=== PATIENT | female | born 1970 | race Hispanic/Latino ===

== ENCOUNTER 2016-06-23 13:28 | Emergency (ER) | payer MEDICAID ==
[2016-06-23 13:29] VITALS: BMI 31.0
[2016-06-23 13:34] VITALS: BP 125/68; PULSE 112; RESP 20; TEMP 97; O2SAT 96
--- NOTE | 2016-06-23 13:49 | ED PDOC ---
Upper Extremity Pain/Injury Time Seen by Provider: 06/23/16 13:36 Chief Complaint (Nursing): Upper Extremity Problem/Injury Chief Complaint (Provider): left shoulder pain History Per: Patient History/Exam Limitations: no limitations Onset/Duration Of Symptoms: Days (x 2 months) Current Symptoms Are (Timing): Still Present Additional Complaint(s): Julianna Smith is a 46 year old female, with a previous medical history of diabetes, who presents to the ED with complaints of left shoulder pain ongoing for the past 2 months. Pt reports no trauma to the shoulder. Pt reports pain radiates from her neck. Pt states to experiencing tingling but no numbness. Pt denies any additional complaints. Pt reports to seeing her PMD who preformed an x-ray and suggested an MRI. Pt reports PMD is on vacation which is why she has not done an MRI yet. Pt reports tylenol, ibuprofen and aleve cause her to feel nauseous. Pt states to seeing her chiropractor 2 days ago who preformed an adjustment which provided no relief. 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 PMD: Priscila Nassar MD Past Medical History Reviewed: Historical Data, Nursing Documentation, Vital Signs Vital Signs: Last Vital Signs Temp 97 F L 06/23/16 13:31 Pulse 112 H 06/23/16 13:31 Resp 20 06/23/16 13:31 BP 125/68 06/23/16 13:31 Pulse Ox 96 06/23/16 13:31 - Medical History PMH: Diabetes - Surgical History Surgical History: Cholecystectomy - Family History Family History: States: Unknown Family Hx - Home Medications Home Medications: Ambulatory Orders Medication Instructions Recorded Cyclobenzaprine [Cyclobenzaprine 10 mg PO BID #14 tab 06/23/16 HCl] Ibuprofen [Motrin] 400 mg PO Q6 #30 tab 06/23/16 - Allergies Allergies/Adverse Reactions: Allergies Allergy/AdvReac Type Severity Reaction Status Date / Time Penicillins Allergy RASH Verified 06/23/16 13:31 Review of Systems ROS Statement: Except As Marked, All Systems Reviewed And Found Negative Musculoskeletal: Positive for: Shoulder Pain (left shoulder radiating from the neck ) Neurological: Positive for: Other (tingling ). Negative for: Numbness Physical Exam - Reviewed Nursing Documentation Reviewed: Yes Vital Signs Reviewed: Yes - Physical Exam Appears: Positive for: Well, Non-toxic, No Acute Distress Back: Positive for: Vertebral Tenderness (C-7) Extremity: Positive for: Capillary Refill (< 2 seconds ), Other (axillary nerve sensation intact ). Negative for: Normal ROM (abduct no more than 90 degrees. normal flexion and extension of the shoulder), Tenderness (no AC joint Tenderness ), Deformity Neurologic/Psych: Positive for: Alert, Oriented - ECG O2 Sat by Pulse Oximetry: 96 (RA) Pulse Ox Interpretation: Normal Medical Decision Making Medical Decision Making: Initial Impression: shoulder injury Initial Plan: * urine * toradol * reevaluation Pt advised to follow up with an orthopedist for an MRI which will provide a definitive diagnosis and treatment. Scribe Attestation: Documented by Lucy Rodriguez, acting as a scribe for Jailene Whitehead PA-C. Provider Scribe Attestation: All medical record entries made by the Scribe were at my direction and personally dictated by me. I have reviewed the chart and agree that the record accurately reflects my personal performance of the history, physical exam, medical decision making, and the department course for this patient. I have also personally directed, reviewed, and agree with the discharge instructions and disposition. Disposition - Clinical Impression Clinical Impression: Shoulder injury - Disposition Referrals: [facility] [Outside] [facility] [place] [Outside] Chin Ko MD [Staff Provider] - Disposition Time: 14:30 Condition: STABLE Prescriptions: Cyclobenzaprine [Cyclobenzaprine HCl] 10 mg PO BID #14 tab Ibuprofen [Motrin] 400 mg PO Q6 #30 tab Instructions: Rotator Cuff Injury (ED), Shoulder Bursitis (ED), Shoulder Pain ( ED)
== END 2016-06-23 14:25 | disposition home or self-care (01) ==
LOC: H.ER 13:28
DX: M25.512 Pain in left shoulder (principal)

== ENCOUNTER 2017-04-17 19:43 | Emergency (ER) | payer MEDICAID ==
[2017-04-17 19:43] VITALS: BMI 31.0
[2017-04-17 21:35] VITALS: BP 172/91; RESP 16; TEMP 97.7; O2SAT 99
[2017-04-17] MEDS ORDERED: Oxycodone/Acetaminophen 5/325 mg Tab PO STA (21:58)
--- NOTE | 2017-04-17 22:14 | ED PDOC ---
HPI: General Adult Time Seen by Provider: 04/17/17 21:38 Chief Complaint (Nursing): Upper Extremity Problem/Injury History Per: Patient Additional Complaint(s): Pt. states on 03/02/17 she had surgery on her L shoulder done by Dr. Morton due to a fracture and dislocation. Pt. has had continued pain to the shoulder since then. Denies new trauma, fever, numbness, tingling, chest pain, SOB. Past Medical History Reviewed: Historical Data, Nursing Documentation, Vital Signs Vital Signs: Last Vital Signs Temp 97.7 F 04/17/17 21:34 Pulse 101 H 04/17/17 21:34 Resp 16 04/17/17 21:34 BP 172/91 H 04/17/17 21:34 Pulse Ox 99 04/17/17 22:14 - Medical History PMH: Diabetes (Type 2) Denies: Chronic Kidney Disease - Surgical History Surgical History: Cholecystectomy - Family History Family History: States: Unknown Family Hx - Home Medications Home Medications: Ambulatory Orders Medication Instructions Recorded Unknown Diabetes Medication 03/02/17 Blood Sugar Diagnostic, Drum 1 each MC TID #50 strip 03/05/17 [Accu-Chek Compact] Calcium Carbonate/Vitamin D 1 tab PO DAILY #20 tab 03/05/17 [Oscal-D 250 mg-125 Units Tab] Gabapentin [Neurontin] 600 mg PO TID #60 tab 03/05/17 Insulin Pump/Infus. Set/Meter 1 each MC TID #1 kit 03/05/17 [Accu-Chek Combo System] Lancing Device/Lancets [Accu-Chek 1 each MC TID #100 kit 03/05/17 Fastclix Lancet Kit] Lisinopril [Zestril] 2.5 mg PO DAILY #30 tab 03/05/17 Rosuvastatin Calcium 2.5 [Crestor] 2.5 mg PO HS #30 tab 03/05/17 oxyCODONE [oxyCODONE Immediate 5 mg PO Q4H PRN #30 tab 03/05/17 Release Tab] oxyCODONE/Acetaminophen [Percocet 1 ea PO Q8 PRN #8 tab 04/17/17 5/325 mg Tab] - Allergies Allergies/Adverse Reactions: Allergies Allergy/AdvReac Type Severity Reaction Status Date / Time Penicillins Allergy RASH Verified 03/02/17 03:13 Review of Systems ROS Statement: Except As Marked, All Systems Reviewed And Found Negative Musculoskeletal: Positive for: Shoulder Pain Physical Exam - Physical Exam Appears: Positive for: Well, Non-toxic, No Acute Distress Skin: Positive for: Normal Color, Warm. Negative for: Rash Pulses-Radial (L): 2+ Extremity: Positive for: Normal ROM, Other (long surgically healed scar on L upper arm without erythema, swelling, dehisence, or discharge; L lateral shoulder tenderness without deformity) Neurologic/Psych: Positive for: Alert, Oriented - ECG ECG: Positive for: Interpreted By Me ECG Rhythm: Positive for: Sinus Rhythm. Negative for: ST/T Changes Rate: 92 O2 Sat by Pulse Oximetry: 99 - Progress ED Course And Treament: Percocet 2 tabs PO ordered. L shoulder x-ray, EKG ordered. Disposition - Clinical Impression Clinical Impression: Shoulder pain - Patient ED Disposition Is Patient to be Admitted: No - Disposition Referrals: Trell Morton MD [Medical Doctor] - Disposition: Routine/Home Disposition Time: 23:17 Condition: STABLE Additional Instructions: Follow up with your pain management doctor for further evaluation. Prescriptions: oxyCODONE/Acetaminophen [Percocet 5/325 mg Tab] 1 ea PO Q8 PRN #8 tab PRN Reason: Pain Instructions: Shoulder Pain (ED) Forms: [employer] (Swedish)
[2017-04-17] MEDS ORDERED: Oxycodone/Acetaminophen 5/325 mg Tab ONE (22:21)
[2017-04-17] MEDS ORDERED: Lidocaine 5% Patch TD STA (23:09)
[2017-04-17] MEDS ORDERED: Lidocaine 5% Patch TD ONE (23:13)
[2017-04-17 23:19] VITALS: PULSE 92
--- NOTE | 2017-04-18 11:08 | RAD ---
PROCEDURE: Radiographs of the Left Shoulder HISTORY: pain COMPARISON: No prior. FINDINGS: BONES: Postoperative ORIF changes right humeral head and neck accomplished with in situ laterally located sideplate and multiple threaded screws. . There are productive changes arising from the greater tuberosity with what appears represent a discrete soft tissue calcification located inferior to the left acromion. JOINTS: As above. SOFT TISSUES: As above OTHER FINDINGS: None. IMPRESSION: Postoperative ORIF changes right humeral head and neck accomplished with in situ laterally located sideplate and multiple threaded screws. . There are productive changes arising from the greater tuberosity with what appears represent a discrete soft tissue calcification located inferior to the left acromion.
--- NOTE | 2017-04-18 11:17 | CARD ---
APPROVED REPORT EKG Measurement Heart [id number] <Conclusion> Normal sinus rhythm Normal ECG
== END 2017-04-17 23:39 | disposition home or self-care (01) ==
LOC: H.ER 19:43
DX: M25.512 Pain in left shoulder (principal); Z98.890 Other specified postprocedural states; E11.9 Type 2 diabetes mellitus without complications; Z88.0 Allergy status to penicillin

== ENCOUNTER 2018-03-19 22:51 | Inpatient (IN) | payer MEDICAID ==
[2018-03-19 22:51] VITALS: BMI 31.0
[2018-03-20] MEDS ORDERED: Sodium Chloride 0.9% 1,000 ML IV STA (02:38)
--- NOTE | 2018-03-20 02:55 | ED PDOC ---
HPI: Abdomen Time Seen by Provider: 03/20/18 02:11 Chief Complaint (Nursing): Abdominal Pain Chief Complaint (Provider): Abdominal Pain History Per: Patient History/Exam Limitations: no limitations Onset/Duration Of Symptoms: Days (x4) Current Symptoms Are (Timing): Still Present Additional Complaint(s): 48 year old female with pmHx of DM and HTN, presents to ED with complaints of abdominal pain associated with nonbloody diarrhea and nonbloody, nonbilious vomiting since 03/15/18. She also states that she not been able to tolerate food or liquids with sensation of generalized weakness. PCP: Dr. Tracie Francois Past Medical History Reviewed: Historical Data, Nursing Documentation, Vital Signs Vital Signs: Last Vital Signs Temp 98 F 03/19/18 23:55 Pulse 95 H 03/19/18 23:55 Resp 18 03/19/18 23:55 BP 135/81 03/19/18 23:55 Pulse Ox 99 03/19/18 23:55 - Medical History PMH: Diabetes (Type 2), HTN Denies: Chronic Kidney Disease - Surgical History Surgical History: Cholecystectomy - Family History Family History: States: Unknown Family Hx - Social History Current smoker - smoking cessation education provided: Yes (5/daily) - Home Medications Home Medications: Ambulatory Orders Medication Instructions Recorded Aspirin [Ecotrin] 81 mg PO DAILY 03/20/18 Empagliflozin [Jardiance] 25 mg PO DAILY 03/20/18 Escitalopram Oxalate [Lexapro] 5 mg PO DAILY 03/20/18 Gabapentin [Neurontin] 600 mg PO TID 03/20/18 Ibuprofen [Motrin] 400 mg PO TID 03/20/18 Losartan [Cozaar] 25 mg PO DAILY 03/20/18 RX: Ergocalciferol [Drisdol 50,000 1.25 mg PO QWK 03/20/18 Intl Units Cap] Rosuvastatin Calcium [Crestor] 5 mg PO DAILY 03/20/18 - Allergies Allergies/Adverse Reactions: Allergies Allergy/AdvReac Type Severity Reaction Status Date / Time Penicillins Allergy RASH Verified 03/02/17 03:13 Review of Systems ROS Statement: Except As Marked, All Systems Reviewed And Found Negative Constitutional: Positive for: Weakness (generalized) Gastrointestinal: Positive for: Vomiting (NBNB), Abdominal Pain, Diarrhea (NB). Negative for: Other (PO tolerance) Physical Exam - Reviewed Nursing Documentation Reviewed: Yes Vital Signs Reviewed: Yes - Physical Exam Appears: Positive for: Non-toxic, Uncomfortable Head Exam: Positive for: ATRAUMATIC, NORMAL INSPECTION, NORMOCEPHALIC Skin: Positive for: Normal Color Eye Exam: Positive for: Normal appearance ENT: Positive for: Normal ENT Inspection Neck: Positive for: Normal Cardiovascular/Chest: Positive for: Regular Rate, Rhythm Respiratory: Positive for: Normal Breath Sounds Gastrointestinal/Abdominal: Positive for: Soft, Tenderness (diffuse). Negative for: Guarding, Rebound Back: Positive for: Normal Inspection. Negative for: L CVA Tenderness, R CVA T enderness Extremity: Positive for: Normal ROM (upper/lower) Neurologic/Psych: Positive for: Alert, Oriented. Negative for: Motor/Sensory Deficits - Laboratory Results Result Diagrams: 03/20/18 02:58 03/20/18 02:58 - ECG O2 Sat by Pulse Oximetry: 99 (RA) Pulse Ox Interpretation: Normal Medical Decision Making Medical Decision Making: Initial Impression: 48 year old female with acute clinical gastritis Initial Plan: * CT ABD/pelvis * Labs * Bentyl 20mg PO * IV fluids * Zofran 4mg IV * Accucheck Time: 0548 --CT ABD/pelvis Findings: Acute cecal diverticulitis without perforation or abscess formation. Mild constipation. Minimal basilar atelectatic pulmonary changes. The liver is of decreased attenuation without mass or defect. Probably hepatic steatosis. There is no intra or extrahepatic biliary ductal dilatation. The spleen is normal. The gallbladder is surgically absent. The pancreas is of normal contour and attenuation characteristics. There is no evidence of adrenal mass. Both kidneys demonstrate prompt and equal nephrograms. The kidneys are normal in size, shape and configuration. There is no evidence of renal or ureteral mass. No renal or ureteral calculi are identified. There is no hydroureter or hydronephrosis. No evidence for appendicitis. No evidence for small or large bowel obstruction. There is no evidence of abdomi nal ascites or lymphadenopathy. There is no evidence of intrinsic or extrinsic bladder mass. There is no pelvic ascites or lymphadenopathy. Images of the lung bases show no evidence of pleural or parenchymal mass. There are no pleural effusions. The bony structures are free of lytic or blastic lesio ns. IMPRESSION: Acute uncomplicated cecal diverticulitis. No perforation or abscess formation. Additional chronic findings as above. Time: 557 --IV antibiotics and blood culture additionally ordered. Patient to be admitted to hospital for acute diverticulitis. Case referred to Dr. Contreras, [facility] [employer] executive. Counseling was provided and all questions were answered regarding diagnosis. There is agreement to discharge plan. Return if symptoms persist or worsen. ------- Scribe Attestation: Documented by Rowena Gaston, acting as a scribe for Ricardo Thibodeaux MD. Provider Scribe Attestation: All medical record entries made by the Scribe were at my direction and personall y dictated by me. I have reviewed the chart and agree that the record accurately reflects my personal performance of the history, physical exam, medical decision making, and the department course for this patient. I have also personally directed, reviewed, and agree with the discharge instructions and disposition. Disposition - Clinical Impression Clinical Impression: Diverticulitis - Patient ED Disposition Is Patient to be Admitted: Yes Counseled Patient/Family Regarding: Studies Performed, Diagnosis - Disposition Disposition Time: 06:00 Condition: FAIR - Pt Status Changed To: Hospital Disposition Of: Inpatient - Admit Certification Admit to Inpatient:: After my assessment, the patient will require hospitalization for at least two midnights. This is because of the severity of symptoms shown, intensity of services needed, and/or the medical risk in this patient being treated as an outpatient. - POA Present On Arrival: Poor Glycemic Control
[2018-03-20 03:51] LABS: SQUAMOUS EPITHIAL 5 /hpf (0-5); URINE BILIRUBIN NEGATIVE (NEGATIVE); URINE BLOOD SMALL (NEGATIVE); URINE CLARITY SLIGHTY-CLOUDY (Clear); URINE COLOR YELLOW (YELLOW); URINE GLUCOSE (UA) >=500 mg/dL (NEGATIVE); URINE LEUKOCYTE ESTERASE NEG Leu/uL (Negative); URINE PROTEIN NEGATIVE (NEGATIVE)
[2018-03-20 03:56] LABS: BASO % 0.2 % (0.0-2.0); EOS # 0.1 K/uL (0.0-0.7); HEMOGLOBIN 15.6 g/dL (12.0-16.0); LYMPH # 1.8 K/uL (1.0-4.3); LYMPH % 14.8 % (20.0-40.0); MEAN CELL VOLUME 92.9 fl (81.0-99.0); MEAN CORPUSCULAR HEMOGLOBIN 30.8 pg (27.0-31.0); MEAN CORPUSCULAR HGB CONC 33.2 g/dL (33.0-37.0); MEAN PLATELET VOLUME 9.3 fl (7.2-11.7); MONO # 1.1 K/uL (0.0-0.8); MONO % 8.7 % (0.0-10.0); NEUT # 9.4 K/uL (1.8-7.0); NEUT % 75.3 % (50.0-75.0); NRBC % 0.1 % (0.0-0.0); RBC 5.07 Mil/uL (3.80-5.20); RED CELL DISTRIBUTION WIDTH 13.3 % (11.5-14.5); WHITE BLOOD COUNT 12.5 K/uL (4.8-10.8)
[2018-03-20 03:58] LABS: ALB/GLOB RATIO 1.3 (1.0-2.1); ALBUMIN 4.1 g/dL (3.5-5.0); BLOOD UREA NITROGEN 9 mg/dl (7-17); GFR NON-AFRICAN AMERICAN > 60; LIPASE 25 U/L (23-300)
[2018-03-20 04:21] LABS: ALT/SGPT 83 U/L (9-52); AST/SGOT 53 U/L (14-36)
[2018-03-20] MEDS ORDERED: Sodium Chloride 0.9% 50 ML IV ONE (04:55)
[2018-03-20] MEDS ORDERED: Iohexol 300 100 ML IJ ONE (04:55)
[2018-03-20] MEDS ORDERED: Ciprofloxacin 400mg/200ml D5W 400 MG/200 ML BAG IV STA (05:57)
[2018-03-20] MEDS ORDERED: metroNIDAZOLE 500mg/100ml NS 100 ML IVPB STA (05:57)
[2018-03-20] MEDS ORDERED: Ciprofloxacin 400mg/200ml D5W 400 MG/200 ML BAG IVPB ONE (06:28)
[2018-03-20] MEDS ORDERED: metroNIDAZOLE 500mg/100ml NS 100 ML IVPB ONE (07:42)
[2018-03-20] MEDS ORDERED: Sodium Chloride 0.9% 1,000 ML IV SCH (08:15)
--- NOTE | 2018-03-20 09:01 | CT ---
Date of service: 03/20/2018 PROCEDURE: CT Abdomen and Pelvis with contrast HISTORY: abd pain COMPARISON: None. TECHNIQUE: Following the intravenous administration of iodinated contrast material, a CT examination of the abdomen and pelvis performed from the domes of the diaphragms to the symphysis pubis with reformatted datasets provided in axial, sagittal and coronal planes. Oral contrast was not administered as per referring physician request. Coronal and sagittal reformats were generated. Contrast dose: Omnipaque 300, 95 cc Radiation dose: Total exam DLP = 771.02 mGy-cm. This CT exam was performed using one or more of the following dose reduction techniques: Automated exposure control, adjustment of the mA and/or kV according to patient size, and/or use of iterative reconstruction technique. FINDINGS: LOWER THORAX: A small hiatal hernia is encountered. LIVER: Hepatic steatosis without intrahepatic biliary dilatation or discrete mass appreciated. GALLBLADDER AND BILE DUCTS: Prior cholecystectomy. PANCREAS: Unremarkable. No gross lesion or ductal dilatation. SPLEEN: Unremarkable. ADRENALS: Unremarkable. No mass. KIDNEYS AND URETERS: Unremarkable. No hydronephrosis. No solid mass. VASCULATURE: Unremarkable. No aortic aneurysm. No aortic atherosclerotic calcification or mural plaque present. BOWEL: Scattered diverticular are identified throughout the colon with pericecal reactive changes seen including adjacent to multiple diverticula suspicious for cecal diverticulitis. The appendix not identified and appendicitis not completely excluded but is not favored either. Clinically correlate further. Moderate retained fecal material scattered throughout the bowel. No bowel obstruction appreciable. Imaging through the stomach reflects distention by retained food. PERITONEUM: Unremarkable. No free fluid. No free air. LYMPH NODES: Unremarkable. No enlarged lymph nodes. BLADDER: Unremarkable. REPRODUCTIVE: Unremarkable. BONES: No acute fracture. OTHER FINDINGS: None. IMPRESSION: Findings likely compatible with cecal diverticulitis. The appendix is not identified. Appendicitis not clearly evident or completely excluded either. Clinically correlate further. Scattered colonic diverticulosis. Hepatic steatosis. Prior cholecystectomy. Concordant preliminary report from [facility], 03/20/2018 5:48 a.m..
[2018-03-20] MEDS ORDERED: Pneumococcal 23-Valent Vaccine IM ONE (10:23)
[2018-03-20] MEDS: Potassium Chl 20 mEq in NS 1,000 ML IV SCH ×2 (13:24→17:39)
--- NOTE | 2018-03-20 14:49 | CP.PCM.CON ---
History of Present Illness - History of Present Illness History of Present Illness: Patient with severe abdominal pain over past few days . Associated with nausea and vomiting and food intolerance.On right side and became unbearable. Ct c/w right sided diverticulitis Review of Systems - Constitutional Constitutional: absent: Chills - EENT Eyes: absent: Blurred Vision Nose/Mouth/Throat: absent: Nasal Congestion - Cardiovascular Cardiovascular: absent: Chest Pain - Respiratory Respiratory: absent: Dyspnea - Gastrointestinal Gastrointestinal: As Per HPI, Abdominal Pain Past Patient History - Past Medical History & Family History Past Medical History?: Yes - Past Social History Smoking Status: Heavy Smoker > 10 Cigarettes Daily - CARDIAC Hx Cardiac Disorders: Yes Hx Hypertension: Yes - PULMONARY Hx Respiratory Disorders: No - NEUROLOGICAL Hx Neurological Disorder: No - HEENT Hx HEENT Problems: No - RENAL Hx Chronic Kidney Disease: No - ENDOCRINE/METABOLIC Hx Endocrine Disorders: Yes Hx Diabetes Mellitus Type 2: Yes - HEMATOLOGICAL/ONCOLOGICAL Hx Blood Disorders: No - INTEGUMENTARY Hx Dermatological Problems: No - MUSCULOSKELETAL/RHEUMATOLOGICAL Hx Musculoskeletal Disorders: No Hx Falls: No - GASTROINTESTINAL Hx Gastrointestinal Disorders: No - GENITOURINARY/GYNECOLOGICAL Hx Genitourinary Disorders: No - PSYCHIATRIC Hx Psychophysiologic Disorder: No Hx Substance Use: No - SURGICAL HISTORY Hx Cholecystectomy: Yes Other/Comment: left arm injury with surgery; plate and 7 screws - ANESTHESIA Hx Anesthesia: Yes Hx Anesthesia Reactions: No Meds Allergies/Adverse Reactions: Allergies Allergy/AdvReac Type Severity Reaction Status Date / Time Penicillins Allergy RASH Verified 03/02/17 03:13 - Medications Medications: Current Medications Atorvastatin Calcium (Lipitor) 10 mg PO DAILY [facility] Last Admin: 03/20/18 13:33 Dose: 10 mg Escitalopram Oxalate (Lexapro) 5 mg PO DAILY [facility] Last Admin: 03/20/18 13:26 Dose: 5 mg Home Med (Empagliflozin [Jardiance]) 25 mg PO DAILY [facility] Last Admin: 03/20/18 13:26 Dose: 25 mg Potassium Chloride/Sodium Chloride (Potassium Chl 20 Meq In Ns) 1,000 mls @ 100 mls/hr IV .Q10H [facility] Stop: 03/21/18 08:11 Last Admin: 03/20/18 13:24 Dose: 100 mls/hr Ciprofloxacin (Cipro 400mg/200ml Dsw) 400 mg in 200 mls @ 200 mls/hr IVPB Q12 ABILIO; Protocol Metronidazole (Flagyl 500mg/100ml Ns) 100 mls @ 100 mls/hr IVPB Q8 ABILIO; Protocol Losartan Potassium (Cozaar) 25 mg PO DAILY [facility] Last Admin: 03/20/18 13:26 Dose: 25 mg Physical Exam - Head Exam Head Exam: ATRAUMATIC - Eye Exam Eye Exam: Normal appearance - ENT Exam ENT Exam: Mucous Membranes Moist - Neck Exam Neck exam: Positive for: Normal Inspection - Respiratory Exam Respiratory Exam: Clear to Auscultation Bilateral - Cardiovascular Exam Cardiovascular Exam: REGULAR RHYTHM - GI/Abdominal Exam GI & Abdominal Exam: Normal Bowel Sounds, Tenderness Results - Vital Signs Recent Vital Signs: Last Vital Signs Temp 98.2 F 03/20/18 09:00 Pulse 65 03/20/18 09:00 Resp 18 03/20/18 09:00 BP 104/71 03/20/18 09:00 Pulse Ox 99 03/20/18 09:00 - Labs Result Diagrams: 03/20/18 02:58 03/20/18 02:58 Labs: Laboratory Results - last 24 hr 03/20/18 03/20/18 03/20/18 02:58 02:58 02:58 WBC 12.5 H RBC 5.07 Hgb 15.6 Hct 47.1 H MCV 92.9 MCH 30.8 MCHC 33.2 RDW 13.3 Plt Count 219 MPV 9.3 Neut % (Auto) 75.3 H Lymph % (Auto) 14.[address] % (Auto) 8.7 Eos % (Auto) 1.0 Baso % (Auto) 0.2 Neut # (Auto) 9.4 H Lymph # (Auto) 1.8 Lane # (Auto) 1.1 H Eos # (Auto) 0.1 Baso # (Auto) 0.0 Sodium 139 Potassium 3.3 L Chloride 101 Carbon Dioxide 27 Anion Gap 14 BUN 9 Creatinine 0.4 L Est GFR ( Amer) > 60 Est GFR (Non-Af Amer) > 60 POC Glucose (mg/dL) Random Glucose 185 H Lactic Acid Calcium 9.0 Total Bilirubin 0.4 AST 53 H D ALT 83 H D Alkaline Phosphatase 72 Total Protein 7.4 Albumin 4.1 Globulin 3.3 Albumin/Globulin Ratio 1.3 Lipase 25 Urine Color Yellow Urine Clarity Slighty-cloudy Urine pH 6.0 Ur Specific [place] 1.037 H Urine Protein Negative Urine Glucose (UA) >=500 Urine Ketones Negative Urine Blood Small Urine Nitrate Negative Urine Bilirubin Negative Urine Urobilinogen 4.0 H Ur Leukocyte Esterase Neg Urine RBC (Auto) 2 Urine Microscopic WBC 2 Ur Squamous Epith Cells 5 03/20/18 03/20/18 07:56 08:10 WBC RBC Hgb Hct MCV MCH MCHC RDW Plt Count MPV Neut % (Auto) Lymph % (Auto) Lane % (Auto) Eos % (Auto) Baso % (Auto) Neut # (Auto) Lymph # (Auto) Lane # (Auto) Eos # (Auto) Baso # (Auto) Sodium Potassium Chloride Carbon Dioxide Anion Gap BUN Creatinine Est GFR ( Amer) Est GFR (Non-Af Amer) POC Glucose (mg/dL) 212 H Random Glucose Lactic Acid 1.1 Calcium Total Bilirubin AST ALT Alkaline Phosphatase Total Protein Albumin Globulin Albumin/Globulin Ratio Lipase Urine Color Urine Clarity Urine pH Ur Specific [place] Urine Protein Urine Glucose (UA) Urine Ketones Urine Blood Urine Nitrate Urine Bilirubin Urine Urobilinogen Ur Leukocyte Esterase Urine RBC (Auto) Urine Microscopic WBC Ur Squamous Epith Cells - Imaging and Cardiology CT scan - abdomen Status: Report reviewed by me Assessment & Plan (1) Diverticulitis large intestine Assessment and Plan: continue IV hydration and broad sbectrum abx. NPO for now. surgical consultation Status: Acute
[2018-03-20] MEDS: Insulin Regular 100 units/ml SC SCH ×2 (17:06→22:00)
[2018-03-20] MEDS: metroNIDAZOLE 500mg/100ml NS 100 ML IVPB SCH (17:37)
[2018-03-20] MEDS: Ciprofloxacin 400mg/200ml D5W 400 MG/200 ML BAG IVPB SCH (21:07)
[2018-03-21] MEDS: metroNIDAZOLE 500mg/100ml NS 100 ML IVPB SCH ×3 (00:11→17:39)
[2018-03-21] MEDS: Potassium Chl 20 mEq in NS 1,000 ML IV SCH ×2 (03:27→22:54)
[2018-03-21 06:44] LABS: HEMOGLOBIN 13.7 g/dL (12.0-16.0); MEAN CELL VOLUME 91.5 fl (81.0-99.0); MEAN CORPUSCULAR HEMOGLOBIN 30.3 pg (27.0-31.0); MEAN CORPUSCULAR HGB CONC 33.2 g/dL (33.0-37.0); RBC 4.5 Mil/uL (3.80-5.20); RED CELL DISTRIBUTION WIDTH 13.3 % (11.5-14.5); WHITE BLOOD COUNT 8.6 K/uL (4.8-10.8)
[2018-03-21 07:04] LABS: BLOOD UREA NITROGEN 7 mg/dl (7-17); CALCIUM 8.4 mg/dL (8.4-10.2); GFR NON-AFRICAN AMERICAN > 60
--- NOTE | 2018-03-21 09:00 | CP.PCM.CON ---
History of Present Illness - History of Present Illness History of Present Illness: 48F w/ PMH of DM, HTN, presented to [facility] ED with complaints of abdominal pain. Patient states symptoms began about 5 days ago. She reports pain is localized along her right lower quadrant. Pain was associated with nausea and non-bloody emesis as well as diarrhea. Patient denies having fever/chills. Denies dysuria. States this is the first time she's ever experienced these kind of symptoms. At time of examination she denied headache/dizziness, fever/chills, chest pain, SOB, dysuria. Reports mild nausea. Never had a colonoscopy. PMH: as stated above PSurgHx: laparoscopic cholecystectomy ~26years ago Allergies: Penicillins (swollen tongue) Fam Hx: No known history of cancers Review of Systems - Review of Systems Review of Systems: 10 pt ROS unremarkable, except as stated in HPI Past Patient History - Past Medical History & Family History Past Medical History?: Yes - Past Social History Smoking Status: Heavy Smoker > 10 Cigarettes Daily - CARDIAC Hx Hypertension: Yes - PULMONARY Hx Respiratory Disorders: No - NEUROLOGICAL Hx Neurological Disorder: No - HEENT Hx HEENT Problems: No - RENAL Hx Chronic Kidney Disease: No - ENDOCRINE/METABOLIC Hx Endocrine Disorders: Yes Hx Diabetes Mellitus Type 2: Yes - HEMATOLOGICAL/ONCOLOGICAL Hx Blood Disorders: No - INTEGUMENTARY Hx Dermatological Problems: No - MUSCULOSKELETAL/RHEUMATOLOGICAL Hx Musculoskeletal Disorders: No Hx Falls: No - GASTROINTESTINAL Hx Gastrointestinal Disorders: No - GENITOURINARY/GYNECOLOGICAL Hx Genitourinary Disorders: No - PSYCHIATRIC Hx Psychophysiologic Disorder: No Hx Substance Use: No - SURGICAL HISTORY Hx Cholecystectomy: Yes - ANESTHESIA Hx Anesthesia: Yes Hx Anesthesia Reactions: No Meds Allergies/Adverse Reactions: Allergies Allergy/AdvReac Type Severity Reaction Status Date / Time Penicillins Allergy RASH Verified 03/02/17 03:13 - Medications Medications: Current Medications Atorvastatin Calcium (Lipitor) 10 mg PO DAILY [facility] Last Admin: 03/20/18 13:33 Dose: 10 mg Escitalopram Oxalate (Lexapro) 5 mg PO DAILY [facility] Last Admin: 03/20/18 13:26 Dose: 5 mg Home Med (Empagliflozin [Jardiance]) 25 mg PO DAILY [facility] Last Admin: 03/20/18 13:26 Dose: 25 mg Ciprofloxacin (Cipro 400mg/200ml Dsw) 400 mg in 200 mls @ 200 mls/hr IVPB Q12 [facility]; Protocol Last Admin: 03/20/18 21:07 Dose: 200 mls/hr Metronidazole (Flagyl 500mg/100ml Ns) 100 mls @ 100 mls/hr IVPB Q8 [facility]; Protocol Last Admin: 03/21/18 00:11 Dose: 100 mls/hr Ibuprofen (Motrin Tab) 600 mg PO Q6 PRN PRN Reason: Pain, moderate (4-7) Last Admin: 03/20/18 17:40 Dose: 600 mg Insulin Human Regular (Humulin R) 0 units SC ACHS [facility]; Protocol Last Admin: 03/20/18 22:00 Dose: Not Given Losartan Potassium (Cozaar) 25 mg PO DAILY [facility] Last Admin: 03/20/18 13:26 Dose: 25 mg Ondansetron HCl (Zofran Inj) 4 mg IVP Q6 PRN PRN Reason: Nausea/Vomiting Pantoprazole Sodium (Protonix Inj) 40 mg IVP DAILY [facility] Physical Exam - Constitutional Appears: No Acute Distress - Head Exam Head Exam: NORMOCEPHALIC - Eye Exam Eye Exam: EOMI, Normal appearance - ENT Exam ENT Exam: Mucous Membranes Moist - Respiratory Exam Respiratory Exam: NORMAL BREATHING PATTERN - Cardiovascular Exam Cardiovascular Exam: +S1, +S2 - GI/Abdominal Exam GI & Abdominal Exam: Soft, Tenderness. absent: Distended, Firm, Guarding, Rebound, Rigid Additional comments: RLQ tenderness - Neurological Exam Neurological exam: Alert, Oriented x3 - Skin Skin Exam: Dry, Intact, Warm Results - Vital Signs Recent Vital Signs: Last Vital Signs Temp 97.9 F 03/21/18 08:14 Pulse 64 03/21/18 08:14 Resp 20 03/21/18 08:14 BP 104/70 03/21/18 08:14 Pulse Ox 95 03/21/18 08:14 - Labs Result Diagrams: 03/21/18 05:45 03/21/18 05:45 Labs: Laboratory Results - last 24 hr 03/20/18 03/20/18 03/21/18 16:48 21:37 05:45 WBC 8.6 RBC 4.50 Hgb 13.7 Hct 41.2 MCV 91.5 MCH 30.3 MCHC 33.2 RDW 13.3 Plt Count 165 Sodium Potassium Chloride Carbon Dioxide Anion Gap BUN Creatinine Est GFR ( Amer) Est GFR (Non-Af Amer) POC Glucose (mg/dL) 115 H 165 H Random Glucose Calcium 03/21/18 03/21/18 05:45 06:11 WBC RBC Hgb Hct MCV MCH MCHC RDW Plt Count Sodium 141 Potassium 3.1 L Chloride 107 Carbon Dioxide 24 Anion Gap 13 BUN 7 Creatinine 0.4 L Est GFR ( Amer) > 60 Est GFR (Non-Af Amer) > 60 POC Glucose (mg/dL) 103 Random Glucose 96 Calcium 8.4 Assessment & Plan - Assessment and Plan (Free Text) Assessment: 48F with cecal diverticulitis Plan: -Ok for CLD -IVF -ABx -Analgesic prn -Anti-emetics prn -Recommend outpatient colonoscopy -F/u GI recs -No acute surgical intervention at this present time D/w Dr. Benedict Paniagua PGY3
[2018-03-21] MEDS: Insulin Regular 100 units/ml SC SCH ×4 (09:49→23:47)
[2018-03-21] MEDS: Ciprofloxacin 400mg/200ml D5W 400 MG/200 ML BAG IVPB SCH ×2 (09:50→20:49)
--- NOTE | 2018-03-21 09:53 | CP.PCM.HP ---
History of Present Illness - History of Present Illness History of Present Illness: 48 year old female with PMHx of DM and HTN, presented to ED with complaints of abdominal pain associated with nonbloody diarrhea and nonbloody, nonbilious vomiting x 4-[address] abd/pelvis was completed, notable for acute diverticulitis started on IV abx and npo patient seen and examined at bedside abd pain improved though still present ruq pain when touched denies fever/chills Present on Admission - Present on Admission Any Indicators Present on Admission: Yes History of Uncontrolled Diabetes: Yes Review of Systems - Review of Systems All systems: reviewed and no additional remarkable complaints except (mentioned above) Past Patient History - Past Medical History & Family History Past Medical History?: Yes - Past Social History Smoking Status: Heavy Smoker > 10 Cigarettes Daily - CARDIAC Hx Hypertension: Yes - PULMONARY Hx Respiratory Disorders: No - NEUROLOGICAL Hx Neurological Disorder: No - HEENT Hx HEENT Problems: No - RENAL Hx Chronic Kidney Disease: No - ENDOCRINE/METABOLIC Hx Endocrine Disorders: Yes Hx Diabetes Mellitus Type 2: Yes - HEMATOLOGICAL/ONCOLOGICAL Hx Blood Disorders: No - INTEGUMENTARY Hx Dermatological Problems: No - MUSCULOSKELETAL/RHEUMATOLOGICAL Hx Musculoskeletal Disorders: No Hx Falls: No - GASTROINTESTINAL Hx Gastrointestinal Disorders: No - GENITOURINARY/GYNECOLOGICAL Hx Genitourinary Disorders: No - PSYCHIATRIC Hx Psychophysiologic Disorder: No Hx Substance Use: No - SURGICAL HISTORY Hx Cholecystectomy: Yes - ANESTHESIA Hx Anesthesia: Yes Hx Anesthesia Reactions: No Meds Home Medications: Home Medication List Medication Instructions Recorded Confirmed Type Ciprofloxacin HCl [Cipro] 500 mg PO BID 7 Days tablet 03/22/18 Rx Metronidazole [Flagyl] 500 mg PO TID 7 Days tablet 03/22/18 Rx Pantoprazole Sodium [Protonix] 40 mg PO DAILY #30 tablet. 03/22/18 Rx Simethicone [Mylicon Chew Tab] 80 mg PO PCHS #60 chew 03/22/18 Rx Allergies/Adverse Reactions: Allergies Allergy/AdvReac Type Severity Reaction Status Date / Time Penicillins Allergy RASH Verified 03/02/17 03:13 Physical Exam - Constitutional Appears: Non-toxic, No Acute Distress - Head Exam Head Exam: NORMAL INSPECTION - Eye Exam Eye Exam: Normal appearance - Neck Exam Neck exam: Positive for: Normal Inspection - Respiratory Exam Respiratory Exam: NORMAL BREATHING PATTERN - Cardiovascular Exam Cardiovascular Exam: +S1, +S2 - GI/Abdominal Exam GI & Abdominal Exam: Normal Bowel Sounds, Soft, Tenderness (ruq) - Extremities Exam Extremities exam: Positive for: normal inspection - Back Exam Back exam: NORMAL INSPECTION - Neurological Exam Neurological exam: Alert, Oriented x3 - Psychiatric Exam Psychiatric exam: Normal Affect, Normal Mood - Skin Skin Exam: Normal Color, Warm Results - Vital Signs Recent Vital Signs: Last Vital Signs Temp 97.9 F 03/21/18 08:14 Pulse 64 03/21/18 09:50 Resp 20 03/21/18 08:14 BP 104/70 03/21/18 09:50 Pulse Ox 95 03/21/18 08:14 - Labs Result Diagrams: 03/21/18 05:45 03/22/18 06:00 Labs: Laboratory Results - last 24 hr 03/20/18 03/20/18 03/21/18 16:48 21:37 05:45 WBC 8.6 RBC 4.50 Hgb 13.7 Hct 41.2 MCV 91.5 MCH 30.3 MCHC 33.2 RDW 13.3 Plt Count 165 Sodium Potassium Chloride Carbon Dioxide Anion Gap BUN Creatinine Est GFR ( Amer) Est GFR (Non-Af Amer) POC Glucose (mg/dL) 115 H 165 H Random Glucose Calcium 03/21/18 03/21/18 05:45 06:11 WBC RBC Hgb Hct MCV MCH MCHC RDW Plt Count Sodium 141 Potassium 3.1 L Chloride 107 Carbon Dioxide 24 Anion Gap 13 BUN 7 Creatinine 0.4 L Est GFR ( Amer) > 60 Est GFR (Non-Af Amer) > 60 POC Glucose (mg/dL) 103 Random Glucose 96 Calcium 8.4 Assessment & Plan (1) Diverticulitis Status: Acute - Assessment and Plan (Free Text) Plan: monitor vitals monitor labs Cont meds Cont tx consult GI rest of plan as ordered
[2018-03-21] MEDS: Simethicone 80 mg Chewtab PO SCH ×3 (12:57→22:55)
--- NOTE | 2018-03-21 13:06 | US ---
Date of service: 03/21/2018 HISTORY: ruq pain COMPARISON: None. TECHNIQUE: Sonographic evaluation of the abdomen. FINDINGS: LIVER: Measures cm. Increased echogenicity of the liver parenchyma. No mass. No intrahepatic bile duct dilatation. GALLBLADDER: Status post cholecystectomy. COMMON BILE DUCT: Measures mm. No stones. No dilatation. PANCREAS: Unremarkable as visualized. No mass. No ductal dilatation. RIGHT KIDNEY: Measures cm. Normal echogenicity. No calculus, mass, or hydronephrosis. LEFT KIDNEY: Measures cm. Normal echogenicity. No calculus, mass, or hydronephrosis. SPLEEN: 13 centimeters. AORTA: No aneurysmal dilatation. IVC: Unremarkable. OTHER FINDINGS: None. IMPRESSION: Cholecystectomy. Fatty liver.
[2018-03-21 16:40] VITALS: BP 101/65; PULSE 65; O2SAT 98
[2018-03-22] MEDS: metroNIDAZOLE 500mg/100ml NS 100 ML IVPB SCH ×2 (00:55→09:43)
--- NOTE | 2018-03-22 05:56 | CP.PCM.PN ---
Subjective - Date & Time of Evaluation Date of Evaluation: 03/22/18 Time of Evaluation: 05:50 - Subjective Subjective: Patient seen and examined. No acute events over night. Tolerated regular diet. Denies n/v. Denies passing flatus/BM. States abdominal pain has improved. No complaints. Objective - Vital Signs/Intake and Output Vital Signs (last 24 hours): Temp Pulse Resp BP Pulse Ox 98.3 F 65 18 101/65 98 03/21/18 17:00 03/21/18 17:00 03/21/18 17:00 03/21/18 17:00 03/21/18 17:00 - Medications Medications: Current Medications Atorvastatin Calcium (Lipitor) 10 mg PO DAILY [facility] Last Admin: 03/21/18 09:50 Dose: 10 mg Escitalopram Oxalate (Lexapro) 5 mg PO DAILY [facility] Last Admin: 03/21/18 10:52 Dose: Not Given Famotidine (Pepcid) 40 mg PO DAILY [facility] Last Admin: 03/21/18 12:57 Dose: 40 mg Home Med (Empagliflozin [Jardiance]) 25 mg PO DAILY [facility] Last Admin: 03/21/18 09:50 Dose: 25 mg Ciprofloxacin (Cipro 400mg/200ml Dsw) 400 mg in 200 mls @ 200 mls/hr IVPB Q12 [facility]; Protocol Last Admin: 03/21/18 20:49 Dose: 200 mls/hr Metronidazole (Flagyl 500mg/100ml Ns) 100 mls @ 100 mls/hr IVPB Q8 [facility]; Protocol Last Admin: 03/22/18 00:55 Dose: 100 mls/hr Potassium Chloride/Sodium Chloride (Potassium Chl 20 Meq In Ns) 1,000 mls @ 100 mls/hr IV .Q10H [facility] Stop: 03/22/18 22:12 Last Admin: 03/21/18 22:54 Dose: 100 mls/hr Ibuprofen (Motrin Tab) 600 mg PO Q6 PRN PRN Reason: Pain, moderate (4-7) Last Admin: 03/20/18 17:40 Dose: 600 mg Insulin Human Regular (Humulin R) 0 units SC ACHS [facility]; Protocol Last Admin: 03/21/18 23:47 Dose: Not Given Losartan Potassium (Cozaar) 25 mg PO DAILY [facility] Last Admin: 03/21/18 09:50 Dose: 25 mg Ondansetron HCl (Zofran Inj) 4 mg IVP Q6 PRN PRN Reason: Nausea/Vomiting Last Admin: 03/21/18 09:50 Dose: 4 mg Pantoprazole Sodium (Protonix Inj) 40 mg IVP DAILY [facility] Last Admin: 03/21/18 10:53 Dose: 40 mg [facility]ethicone ([facility]licon Chew [facility]) [facility] Admin: 03/21/18 22:55 Dose: 80 mg - Labs Labs: 03/21/18 05:45 03/21/18 05:45 - Constitutional Appears: No Acute Distress - Head Exam Head Exam: NORMOCEPHALIC - Eye Exam Eye Exam: EOMI, Normal appearance - ENT Exam ENT Exam: Mucous Membranes Moist - Respiratory Exam Respiratory Exam: NORMAL BREATHING PATTERN - Cardiovascular Exam Cardiovascular Exam: +S1, +S2 - GI/Abdominal Exam GI & Abdominal Exam: Soft. absent: Firm, Guarding, Tenderness, Rebound - Neurological Exam Neurological Exam: Alert, Awake, Oriented x3 - Psychiatric Exam Psychiatric exam: Normal Mood - Skin Skin Exam: Dry, Intact, Warm Assessment and Plan - Assessment and Plan (Free Text) Assessment: 48F with cecal diverticulitis Plan: Recommend low residue diet C/w ABx Analgesics prn Anti-emetics prn No acute surgical intervention at this time F/u GI recs Encourage ambulation Further recs per Dr. Benedict Paniagua PGY3
[2018-03-22 07:37] LABS: BLOOD UREA NITROGEN 13 mg/dl (7-17); GFR NON-AFRICAN AMERICAN > 60
[2018-03-22] MEDS: Insulin Regular 100 units/ml SC SCH ×2 (09:43→12:27)
[2018-03-22] MEDS: Simethicone 80 mg Chewtab PO SCH (09:45)
[2018-03-22] MEDS: Ciprofloxacin 400mg/200ml D5W 400 MG/200 ML BAG IVPB SCH (10:44)
--- NOTE | 2018-03-22 10:50 | CP.PCM.PN ---
Subjective - Date & Time of Evaluation Date of Evaluation: 03/22/18 Time of Evaluation: 10:34 - Subjective Subjective: Doing well. Denies pain and tolerating diet. Objective - Vital Signs/Intake and Output Vital Signs (last 24 hours): Temp Pulse Resp BP Pulse Ox 98.3 F 65 18 101/65 98 03/21/18 17:00 03/22/18 09:44 03/21/18 17:00 03/22/18 09:44 03/21/18 17:00 - Medications Medications: Current Medications Atorvastatin Calcium (Lipitor) 10 mg PO DAILY [facility] Last Admin: 03/22/18 09:45 Dose: 10 mg Escitalopram Oxalate (Lexapro) 5 mg PO DAILY [facility] Last Admin: 03/22/18 09:37 Dose: Not Given Famotidine (Pepcid) 40 mg PO DAILY [facility] Last Admin: 03/22/18 09:44 Dose: 40 mg Home Med (Empagliflozin [Jardiance]) 25 mg PO DAILY [facility] Last Admin: 03/22/18 09:44 Dose: 25 mg Ciprofloxacin (Cipro 400mg/200ml Dsw) 400 mg in 200 mls @ 200 mls/hr IVPB Q12 [facility]; Protocol Last Admin: 03/21/18 20:49 Dose: 200 mls/hr Metronidazole (Flagyl 500mg/100ml Ns) 100 mls @ 100 mls/hr IVPB Q8 [facility]; Protocol Last Admin: 03/22/18 09:43 Dose: 100 mls/hr Potassium Chloride/Sodium Chloride (Potassium Chl 20 Meq In Ns) 1,000 mls @ 100 mls/hr IV .Q10H [facility] Stop: 03/22/18 22:12 Last Admin: 03/21/18 22:54 Dose: 100 mls/hr Ibuprofen (Motrin Tab) 600 mg PO Q6 PRN PRN Reason: Pain, moderate (4-7) Last Admin: 03/20/18 17:40 Dose: 600 mg Insulin Human Regular (Humulin R) 0 units SC ACHS [facility]; Protocol Last Admin: 03/22/18 09:43 Dose: 1 unit Losartan Potassium (Cozaar) 25 mg PO DAILY [facility] Last Admin: 03/22/18 09:44 Dose: 25 mg Ondansetron HCl (Zofran Inj) 4 mg IVP Q6 PRN PRN Reason: Nausea/Vomiting Last Admin: 03/21/18 09:50 Dose: 4 mg Pantoprazole Sodium (Protonix Inj) 40 mg IVP DAILY [facility] Last Admin: 03/22/18 09:43 Dose: 40 mg Simethicone (Mylicon Chew Tab) 80 mg PO PCHS [facility] Last Admin: 03/22/18 09:45 Dose: 80 mg - Labs Labs: 03/21/18 05:45 03/22/18 06:00 - Head Exam Head Exam: ATRAUMATIC - Eye Exam Eye Exam: Normal appearance - Neck Exam Neck Exam: Full ROM - Respiratory Exam Respiratory Exam: Clear to Ausculation Bilateral - Cardiovascular Exam Cardiovascular Exam: REGULAR RHYTHM - GI/Abdominal Exam GI & Abdominal Exam: Soft. absent: Tenderness Assessment and Plan (1) Diverticulitis large intestine Assessment & Plan: Clinically much better. Complete one week of antibiotics. Colonoscopy after 6 weeks. Status: Acute
[2018-03-22 11:25] VITALS: RESP 20; TEMP 97.9
[2018-03-22] MEDS: Potassium Chl 20 mEq in NS 1,000 ML IV SCH (12:29)
--- NOTE | 2018-03-23 13:49 | CARD ---
APPROVED REPORT Date of service: 03/21/2018 EKG Measurement Heart [id number] IN [id number] <Conclusion> Sinus bradycardia Otherwise normal ECG
--- NOTE | 2018-03-23 22:47 | CP.PCM.PN ---
Subjective - Date & Time of Evaluation Date of Evaluation: 03/21/18 Time of Evaluation: 11:00 - Subjective Subjective: patient seen and examined at bedside. Interim events noted ruq pain on palpation No other complaints offered at this time denies cp/sob/fever/chills. available diagnostic data reviewed Objective Vital Signs Stable - Constitutional Appears: Non-toxic, No Acute Distress - Head Exam Head Exam: NORMAL INSPECTION - Eye Exam Eye Exam: Normal appearance - Respiratory Exam Respiratory Exam: NORMAL BREATHING PATTERN - Cardiovascular Exam Cardiovascular Exam: +S1, +S2 - GI/Abdominal Exam GI & Abdominal Exam: Soft, tenderness ruq - Neurological Exam Neurological Exam: Alert, Awake - Psychiatric Exam Psychiatric exam: Normal Affect, Normal Mood - Skin Skin Exam: Normal Color, Warm Assessment and Plan monitor vitals monitor labs Cont meds Cont tx obtain ruq u/s consultants appreciated input rest of plan as ordered Assessment and Plan (1) Diverticulitis Status: Acute
--- NOTE | 2018-03-23 22:49 | CP.PCM.DIS ---
Provider - Provider Date of Admission: 03/20/18 05:58 Attending physician: Juan Contreras MD Consults: 03/20/18 09:58 Gastroenterology Consult Routine Comment: Consulting Provider: Faisal Flood Consulting Physician: Faisal Flood Reason for Consult: Acute cecal diverticulitis 03/21/18 08:12 General Surgery Consult Routine Comment: cecal diverticulitis Consulting Provider: Shailesh Mcmullen Consulting Physician: Shailesh Mcmullen Reason for Consult: cecal diverticulitis Time Spent in preparation of Discharge (in minutes): 30 Diagnosis - Discharge Diagnosis (1) Diverticulitis Status: Acute Hospital Course - Lab Results Lab Results: Micro Results 03/20/18 06:00 Blood Blood Culture - Preliminary NO GROWTH AFTER 3 DAYS 03/20/18 08:10 Blood Blood Culture - Preliminary NO GROWTH AFTER 3 DAYS Most Recent Lab Values WBC 8.6 K/uL (4.8-10.8) 03/21/18 05:45 RBC 4.50 Mil/uL (3.80-5.20) 03/21/18 05:45 Hgb 13.7 g/dL (12.0-16.0) 03/21/18 05:45 Hct 41.2 % (34.0-47.0) 03/21/18 05:45 MCV 91.5 fl (81.0-99.0) 03/21/18 05:45 MCH 30.3 pg (27.0-31.0) 03/21/18 05:45 MCHC 33.2 g/dL (33.0-37.0) 03/21/18 05:45 RDW 13.3 % (11.5-14.5) 03/21/18 05:45 Plt Count 165 K/uL (130-400) 03/21/18 05:45 MPV 9.3 fl (7.2-11.7) 03/20/18 02:58 Neut % (Auto) 75.3 % (50.0-75.0) H 03/20/18 02:58 Lymph % (Auto) 14.8 % (20.0-40.0) L 03/20/18 02:58 Lynn % (Auto) 8.7 % (0.0-10.0) 03/20/18 02:58 Eos % (Auto) 1.0 % (0.0-4.0) 03/20/18 02:58 Baso % (Auto) 0.2 % (0.0-2.0) 03/20/18 02:58 Neut # (Auto) 9.4 K/uL (1.8-7.0) H 03/20/18 02:58 Lymph # (Auto) 1.8 K/uL (1.0-4.3) 03/20/18 02:58 Lynn # (Auto) 1.1 K/uL (0.0-0.8) H 03/20/18 02:58 Eos # (Auto) 0.1 K/uL (0.0-0.7) 03/20/18 02:58 Baso # (Auto) 0.0 K/uL (0.0-0.2) 03/20/18 02:58 Sodium 137 mmol/l (132-148) 03/22/18 06:00 Potassium 3.9 MMOL/L (3.6-5.0) 03/22/18 06:00 Chloride 103 mmol/L (98-107) 03/22/18 06:00 Carbon Dioxide 25 mmol/L (22-30) 03/22/18 06:00 Anion Gap 13 (10-20) 03/22/18 06:00 BUN 13 mg/dl (7-17) 03/22/18 06:00 Creatinine 0.7 mg/dl (0.7-1.2) 03/22/18 06:00 Est GFR ( Amer) > 60 03/22/18 06:00 Est GFR (Non-Af Amer) > 60 03/22/18 06:00 POC Glucose (mg/dL) 228 mg/dL (65-110) H 03/22/18 11:11 Random Glucose 183 mg/dL (65-105) H 03/22/18 06:00 Lactic Acid 1.1 MMOL/L (0.7-2.1) 03/20/18 08:10 Calcium 9.0 mg/dL (8.4-10.2) 03/22/18 06:00 Total Bilirubin 0.4 mg/dl (0.2-1.3) 03/20/18 02:58 AST 53 U/L (14-36) H D 03/20/18 02:58 ALT 83 U/L (9-52) H D 03/20/18 02:58 Alkaline Phosphatase 72 U/L (38-126) 03/20/18 02:58 Total Protein 7.4 G/DL (6.3-8.2) 03/20/18 02:58 Albumin 4.1 g/dL (3.5-5.0) 03/20/18 02:58 Globulin 3.3 gm/dL (2.2-3.9) 03/20/18 02:58 Albumin/Globulin Ratio 1.3 (1.0-2.1) 03/20/18 02:58 Lipase 25 U/L (23-300) 03/20/18 02:58 Urine Color Yellow (YELLOW) 03/20/18 02:58 Urine Clarity Slighty-cloudy (Clear) 03/20/18 02:58 Urine pH 6.0 (5.0-8.0) 03/20/18 02:58 Ur Specific [place] 1.037 (1.003-1.030) H 03/20/18 02:58 Urine Protein Negative mg/dL (NEGATIVE) 03/20/18 02:58 Urine Glucose (UA) >=500 mg/dL (NEGATIVE) 03/20/18 02:58 Urine Ketones Negative mg/dL (NEGATIVE) 03/20/18 02:58 Urine Blood Small (NEGATIVE) 03/20/18 02:58 Urine Nitrate Negative (NEGATIVE) 03/20/18 02:58 Urine Bilirubin Negative (NEGATIVE) 03/20/18 02:58 Urine Urobilinogen 4.0 mg/dL (0.2-1.0) H 03/20/18 02:58 Ur Leukocyte Esterase Neg [place]/uL (Negative) 03/20/18 02:58 Urine RBC (Auto) 2 /hpf (0-3) 03/20/18 02:58 Urine Microscopic WBC 2 /hpf (0-5) 03/20/18 02:58 Ur Squamous Epith Cells 5 /hpf (0-5) 03/20/18 02:58 - Hospital Course Hospital Course: 48 year old female with PMHx of DM and HTN, presented to ED with complaints of abdominal pain associated with nonbloody diarrhea and nonbloody, nonbilious vomiting x 4-[address] abd/pelvis was completed, notable for acute diverticulitis started on IV abx and diet was advanced as tolerated GI and surgery consulted patient was cleared and discharged in stable condition Discharge Exam - Head Exam Head Exam: NORMAL INSPECTION - Eye Exam Eye Exam: Normal appearance - Neck Exam Neck exam: Normal Inspection - Respiratory Exam Respiratory Exam: NORMAL BREATHING PATTERN - Cardiovascular Exam Cardiovascular Exam: +S1, +S2 - GI/Abdominal Exam GI & Abdominal Exam: Normal Bowel Sounds, Soft - Neurological Exam Neurological exam: Alert, Oriented x3 - Psychiatric Exam Psychiatric exam: Normal Affect, Normal Mood - Skin Skin Exam: Normal Color, Warm Discharge Plan - Discharge Medications Prescriptions: Ciprofloxacin HCl [Cipro] 500 mg PO BID 7 Days tablet Metronidazole [Flagyl] 500 mg PO TID 7 Days tablet Pantoprazole Sodium [Protonix] 40 mg PO DAILY #30 tablet.dr Cho [Mylicon Chew Tab] 80 mg PO PCHS #60 chew - Follow Up Plan Condition: STABLE Disposition: HOME/ ROUTINE Instructions: How to Wash Your Hands Properly, Diverticulitis (DC) Additional Instructions: patient to follow up with GI and PMD in 1-2 wks
--- NOTE | 2018-03-23 23:02 | PQF ---
PROVIDER RESPONSE TEXT: DM with hyperglycemia REVIEWER QUERY TEXT: Diabetic Associated Manifestations Please specify any manifestations associated / due to diabetes Such as: ---DM with Hyperglycemia -- Diabetes with renal manifestation -- Diabetes with neurologic manifestation -- Diabetes with ophthalmic manifestation -- Diabetes with peripheral circulatory manifestation -- Other, please specify --Disagree POC:212->115->165->103-----179->187->228 [place] Glucose:185->96->183 -Jardiance The patient's Clinical Indicators include: --- Query created by: Silvia Wood on 03/23/2018 10:31 AM Electronically signed by: Juan Contreras 03/23/2018 10:58 PM
--- NOTE | 2018-03-23 23:02 | PQF ---
PROVIDER RESPONSE TEXT: hypokalemia REVIEWER QUERY TEXT: Clarification of Clinical Diagnostic Findings Please clarify if there is an additional dx. to go along with the serum Potasium:K: 3.3->3.1->3.9? OR: Disagree OR:Other explanation of clinical finding 03/20 and 03/21: Potassium Chloride: IV ordered . The patient's Clinical Indicators include: --- Query created by: Silvia Wood on 03/23/2018 10:26 AM Electronically signed by: Juan Contreras 03/23/2018 10:58 PM
== END 2018-03-22 13:33 | disposition home or self-care (01) | DRG 182 ==
LOC: H.ER 22:51 → H.ERHOLD 03-20 05:58 → H.MEDSURG1 03-20 08:44
PROVIDERS: ADMIT Family Medicine; ATTEND Family Medicine
PROC: 3E0234Z Introduction of Serum, Toxoid and Vaccine into Muscle, Percutaneous Approach (ICD-10-PCS; principal; 2018-03-20)
DX: K57.32 Diverticulitis of large intestine without perforation or abscess without bleeding (principal); E87.6 Hypokalemia; E11.65 Type 2 diabetes mellitus with hyperglycemia; I10 Essential (primary) hypertension; Z88.0 Allergy status to penicillin; Z23 Encounter for immunization; F17.210 Nicotine dependence, cigarettes, uncomplicated; Z79.82 Long term (current) use of aspirin